=== PATIENT | female | born 1990 ===

== ENCOUNTER 2016-09-10 15:43 | Emergency (ER) | payer OTHER ==
[2016-09-10 15:43] VITALS: BMI 22.6
[2016-09-10 15:50] VITALS: BP 119/76; PULSE 89; RESP 20; TEMP 98.3; O2SAT 99
[2016-09-10] MEDS ORDERED: Hydrocodone/Acetaminophen 5 mg /300 mg Tab PO STA (16:14)
--- NOTE | 2016-09-10 16:15 | C.PDOC ---
History Of Present Illness 26 y/o female presents to the ED with complaints of left lower molar pain x1 year, worsening over the past several days. Pt has not seen a dentist yet. Pt denies trauma, fever, discharge, facial swelling. Time Seen by Provider: 09/10/16 15:55 Chief Complaint (Nursing): Dental Pain History Per: Patient History/Exam Limitations: no limitations Onset/Duration Of Symptoms: Days Current Symptoms Are (Timing): Worse Severity: Moderate Quality: Positive for: "Pain" Past Medical History Reviewed: Historical Data, Nursing Documentation, Vital Signs Vital Signs: Last Vital Signs Temp 98.3 F 09/10/16 15:49 Pulse 89 09/10/16 15:49 Resp 20 09/10/16 15:49 BP 119/76 09/10/16 15:49 Pulse Ox 99 09/10/16 17:46 - Medical History PMH: No Chronic Diseases - [facility] Procedures OTHER SKIN & SUBQ I D (04/06/14) Family History: States: No Known Family Hx - Social History Hx Tobacco Use: No Hx Alcohol Use: No Hx Substance Use: No - Immunization History Hx Tetanus Toxoid Vaccination: No Hx Influenza Vaccination: No Hx Pneumococcal Vaccination: No Review Of Systems Except As Marked, All Systems Reviewed And Found Negative. Constitutional: Negative for: Fever, Chills ENT: Positive for: Other (left lower molar pain, no discharge, no facial swelling). Negative for: Throat Pain Respiratory: Negative for: Cough, Shortness of Breath Physical Exam - Physical Exam Appears: Non-toxic, In Acute Distress (mild pain) Skin: Warm, Dry, No Rash Head: Normacephalic, No Swelling Oral Mucosa: Moist Tongue: Normal Appearing, No Swelling Lips: Normal Appearing, No Swelling Teeth: Other (partial erruption of tooth #17, tooth and gingiva tender to palpation; no erythema, discharge, fluctuance or induration) Throat: Normal, No Erythema Neck: Normal ROM, Supple Cardiovascular: Rhythm Regular, No Murmur Respiratory: Normal Breath Sounds, No Rales, No Rhonchi, No Wheezing Extremity: Bilateral: Atraumatic Neurological/Psych: Oriented x3 ED Course And Treatment O2 Sat by Pulse Oximetry: 99 (on room air) Pulse Ox Interpretation: Normal Progress Note: Patient given PO pain medication (Vicodin), and instructed to follow up with dentist within 1 week. She understands that she has a wisdom tooth that is erupting, and there is insufficient space in her mouth for it. Patient instructed to ED if symptoms worsen. Disposition Counseled Patient/Family Regarding: Diagnosis, Need For Followup - Disposition Referrals: [facility] [Outside] Disposition: HOME/ ROUTINE Disposition Time: 16:25 Condition: STABLE Additional Instructions: USTED NECESITA TENER HUDSON MOLAR INFERIOR EN EL LADO AMY (DENTE DE SABIDURA ) EXTRADO USE MEDICAMENTOS PARA EL DOLOR CARI SEA NECESARIO ANDRADE FRANDY CALVIN CON EL DENTISTA DENTRO DE 1 SEMANA YOU NEED TO HAVE YOUR LOWER MOLAR ON LEFT SIDE (WISDOM TOOTH) EXTRACTED USE MEDICATION FOR PAIN NEEDED MAKE APPOINTMENT WITH DENTIST WITHIN 1 WEEK Instructions: Toothache (ED) Print Language: MONEGASQUE - POA Present On Arrival: None - Clinical Impression Clinical Impression: Pain, dental - Scribe Statement The provider has reviewed the documentation as recorded by the Rivera Iyer Provider Attestation: All medical record entries made by the Rivera were at my direction and personally dictated by me. I have reviewed the chart and agree that the record accurately reflects my personal performance of the history, physical exam, medical decision making, and the department course for this patient. I have also personally directed, reviewed, and agree with the discharge instructions and disposition.
[2016-09-10] MEDS ORDERED: Hydrocodone/Acetaminophen 5 mg /300 mg Tab PO ONE (16:20)
== END 2016-09-10 16:44 | disposition home or self-care (01) ==
LOC: C.ER 15:43
DX: K08.89 Other specified disorders of teeth and supporting structures (principal)